=== PATIENT | female | born 1975 | race Caucasian/White ===

== ENCOUNTER 2016-07-17 11:03 | Emergency (ER) | payer OTHER ==
--- NOTE | 2016-07-17 11:45 | RAD ---
LEFT KNEE 4 VIEWS HISTORY: Left knee pain since last Friday.. Frontal, lateral, and bilateral oblique views of the left knee. COMPARISON: None. ALIGNMENT: Medial translation of the distal femur.. JOINT SPACES: Minor medial joint space narrowing. Multicompartment osteophyte formation.. JOINT EFFUSION: Minimal effusion. CALCIFICATIONS: No abnormal calcifications noted. FRACTURE: No displaced acute fracture. IMPRESSION: No fracture identified. Small joint effusion. Early osteoarthritic change with mild narrowing at the medial tibiofemoral compartment..
--- NOTE | 2016-07-17 13:36 | US ---
LEFT LOWER EXTREMITY VENOUS ULTRASOUND HISTORY: Left knee pain since 07/13/2016. Sonography of the left lower extremity was performed, with a focus on the venous structures. FINDINGS: COMMON FEMORAL VEIN: Patent and compressible. SUPERFICIAL FEMORAL VEIN: Patent and compressible. POPLITEAL VEIN: Patent and compressible. PROXIMAL CALF VEINS: Patent and compressible. RESPIRATORY AUGMENTATION OF FLOW: Present. ABNORMAL FLUID COLLECTIONS: None identified. IMPRESSION: No sonographic evidence of left lower extremity deep venous thrombosis. Results were electronically transmitted to the electronic medical record at 07/17/2016 at 1332 hours.
== END 2016-07-17 14:36 | disposition home or self-care (01) ==
LOC: ED 11:03
DX: M79.662 Pain in left lower leg (principal); M25.462 Effusion, left knee; I10 Essential (primary) hypertension; E66.9 Obesity, unspecified; Z68.42 Body mass index [BMI] 45.0-49.9, adult; F17.210 Nicotine dependence, cigarettes, uncomplicated